=== PATIENT | female | born 1970 ===

== ENCOUNTER 2017-08-11 18:00 | Emergency (ER) | payer OTHER ==
[~2017-08-11] VITALS: Ht 162.6 cm; Wt 113.4 kg
[~2017-08-11 18:00] MED LIST: AMOX1TAB5 PO; GILTUSS TR TAB1 EACH PO; PROVENTIL HFA6.7 GM IH; PROVENTIL3 ML/2.5 M IH; VASOTEC5 MG; ZITHROMAX500 MG PO; ZYRTEC10 MG PO
== END 2017-08-12 00:52 | disposition home or self-care (01) ==
LOC: ER 18:00
DX: M94.0 Chondrocostal junction syndrome [Tietze] (principal); R07.9 Chest pain, unspecified; F06.4 Anxiety disorder due to known physiological condition

== ENCOUNTER 2017-12-04 20:43 | Emergency (ER) | payer OTHER ==
[~2017-12-04] VITALS: Ht 162.6 cm; Wt 106.6 kg
== END 2017-12-04 22:09 | disposition home or self-care (01) ==
LOC: ER 20:43
DX: T79.8XXA Other early complications of trauma, initial encounter (principal); Z46.89 Encounter for fitting and adjustment of other specified devices; X58.XXXA Exposure to other specified factors, initial encounter

== ENCOUNTER 2019-05-10 01:48 | Emergency (ER) | payer OTHER ==
[~2019-05-10] VITALS: Ht 165.1 cm; Wt 95.3 kg
[2019-05-10] MEDS ORDERED: SYMBICORT 16010.2 GM IH (07:34)
[2019-05-10] MEDS ORDERED: ZITHROMAX500 MG PO (07:34)
[2019-05-10] MEDS ORDERED: ZYNCOF 20-400120 ML PO (07:34)
[2019-05-10] MEDS ORDERED: PROVENTIL HFA6.7 GM IH (07:34)
[2019-05-10] MEDS ORDERED: ALBUTEROL2.5 MG/3 M IH (07:34)
== END 2019-05-10 07:54 | disposition home or self-care (01) ==
LOC: ER 01:48
DX: J40 Bronchitis, not specified as acute or chronic (principal)

== ENCOUNTER 2019-09-10 19:20 | Emergency (ER) | payer OTHER ==
[~2019-09-10] VITALS: Ht 162.6 cm; Wt 95.3 kg
[~2019-09-10 19:20] MED LIST changes: +ALBUTEROL2.5 MG/3 M IH; +SYMBICORT 16010.2 GM IH; +ZYNCOF 20-400120 ML PO
[2019-09-10] MEDS ORDERED: DICLOFENAC SODI75 MG PO (20:15)
== END 2019-09-10 20:35 | disposition home or self-care (01) ==
LOC: ER 19:20
DX: S80.01XA Contusion of right knee, initial encounter (principal); S90.01XA Contusion of right ankle, initial encounter; S30.0XXA Contusion of lower back and pelvis, initial encounter; M12.561 Traumatic arthropathy, right knee; M12.571 Traumatic arthropathy, right ankle and foot; W18.09XA Striking against other object with subsequent fall, initial encounter; Y93.89 Activity, other specified; Y92.512 Supermarket, store or market as the place of occurrence of the external cause; Y99.8 Other external cause status